=== PATIENT | male | born 1955 | race Asian ===

== ENCOUNTER 2017-11-16 16:23 | Emergency (ER) | payer MEDICAID ==
[~2017-11-16] VITALS: Ht 170.2 cm; Wt 65.0 kg
[2017-11-16 21:30] VITALS: BP 145/81
== END 2017-11-16 22:05 | disposition left against medical advice (07) ==
LOC: ER 17:14
DX: M79.89 Other specified soft tissue disorders (principal)
CPT/HCPCS: 36415; 73630; 84550; 99285; Z7610

== ENCOUNTER 2017-11-17 11:44 | Emergency (ER) | payer MEDICAID ==
[~2017-11-17] VITALS: Ht 170.2 cm; Wt 66.0 kg
[2017-11-17 11:53] VITALS: BP 150/82
== END 2017-11-17 13:14 | disposition home or self-care (01) ==
LOC: ER 11:44
DX: M10.9 Gout, unspecified (principal); I10 Essential (primary) hypertension
CPT/HCPCS: 99282

== ENCOUNTER 2024-02-21 16:32 | Emergency (ER) | payer MEDICAID, MEDICARE ==
[~2024-02-21] VITALS: Ht 167.6 cm; Wt 58.9 kg
[2024-02-21 17:19] VITALS: O2SAT 99
[2024-02-21] MEDS ORDERED: LIDOCAINE HCL/PF 1% 10 MG/ML 5ML VIAL INFIL ONE (18:45)
[2024-02-21] MEDS ORDERED: BACITRACIN ZINC OINT UDPKT TOP ONE (18:45)
[2024-02-21] MEDS ORDERED: TETANUS, DIPHTHERIA, PERTUSSIS VAC/PF 0.5ML (>10YR OLD) IM ONE (18:45)
[2024-02-21] MEDS: TETANUS, DIPHTHERIA, PERTUSSIS VAC/PF 0.5ML (>10YR OLD) IM ONE (21:20)
[2024-02-21 21:25] VITALS: BP 145/66; PULSE 66; RESP 14; TEMP 36.50292; O2SAT 99
[2024-02-21] MEDS: ACETAMINOPHEN 500MG TABLET PO ONE (21:41)
== END 2024-02-21 21:27 | disposition home or self-care (01) ==
LOC: ER 16:32
DX: S61.011A Laceration without foreign body of right thumb without damage to nail, initial encounter (principal); I10 Essential (primary) hypertension; W26.9XXA Contact with unspecified sharp object(s), initial encounter; Y93.89 Activity, other specified; Y92.89 Other specified places as the place of occurrence of the external cause; Y99.8 Other external cause status
CPT/HCPCS: 90715; 12002; 90471; 99283; Z7610